=== PATIENT | female | born 1980 | race Caucasian/White ===

== ENCOUNTER 2016-05-11 20:58 | Emergency (ER) | payer BC ==
[~2016-05-11] VITALS: Ht 165.1 cm; Wt 77.1 kg
[2016-05-11] MEDS ORDERED: IBUP800T23 PO (21:16)
[2016-05-11] MEDS ORDERED: MULT1TAB8 PO (21:16)
[2016-05-11] MEDS ORDERED: diphenhydrAMINE INJ 50MG/ML VIAL (J1200) IV STA (22:46)
[2016-05-11] MEDS ORDERED: ACETAMINOPHEN 325 MG TAB PO ONE (23:00)
[2016-05-11] MEDS ORDERED: NS 1,000 ML IV ONE (23:00)
[2016-05-11] MEDS ORDERED: METOCLOPRAMIDE INJ 10MG/2ML VIAL (J2765) IV ONE (23:00)
[2016-05-11 23:26] LABS: BASO % 0.9 % (0.0-1.0); EOS # 0.2 K/mm3 (0.0-0.50); EOS % 3.6 % (0.0-3.0); LARGE UNSTAINED CELL # 0.2 K/mm3 (0.0-0.4); LARGE UNSTAINED CELL % 3.4 % (0.0-4.0); LYMPH # 1.5 K/mm3 (1.5-4.5); MEAN CORPUSCULAR HEMOGLOBIN 28.9 pg (27.0-33.0); MEAN CORPUSCULAR HGB CONC 33.1 g/dl (32.0-36.5); MEAN CORPUSCULAR VOLUME 87.5 fl (80.0-96.0); MONO # 0.4 K/mm3 (0.0-0.8); MONO % 8.2 % (0.0-5.0); NEUTROPHILS # 2.4 K/mm3 (1.8-7.7); NEUTROPHILS % 53.9 % (36.0-66.0); PLATELET COUNT, AUTOMATED 190 k/mm3 (150-450); RED CELL DISTRIBUTION WIDTH 12.3 % (11.5-14.5); WHITE BLOOD COUNT 4.5 K/mm3 (4.0-10.0)
[2016-05-11 23:32] LABS: CALCIUM OXALATE CRYSTALS LARGE
[2016-05-11 23:55] LABS: ANION GAP 7 MEQ/L (8-16); BLOOD UREA NITROGEN 12 MG/DL (7-18); CALCIUM LEVEL 8.7 MG/DL (8.5-10.1); CARBON DIOXIDE LEVEL 27 MEQ/L (21-32); CHLORIDE LEVEL 108 MEQ/L (98-107); CREATININE FOR GFR 0.79 MG/DL (0.55-1.02); GLOMERULAR FILTRATION RATE > 60.0 (>60); GLUCOSE, FASTING 97 MG/DL (70-105); POTASSIUM SERUM 4.3 MEQ/L (3.5-5.1); SODIUM LEVEL 142 MEQ/L (136-145)
[2016-05-12 00:31] VITALS: BP 116/63
== END 2016-05-12 00:37 | disposition home or self-care (01) ==
LOC: M ED 22:05
DX: B34.9 Viral infection, unspecified (principal); I49.9 Cardiac arrhythmia, unspecified; K44.9 Diaphragmatic hernia without obstruction or gangrene; N80.9 Endometriosis, unspecified; Z79.899 Other long term (current) drug therapy
CPT/HCPCS: 80048; 81001; 81025; 85025; 87804; 96374; 96375; 99283; J1200; J2765

== ENCOUNTER → 2017-04-02 | Outpatient (CLI) | payer BC ==
[2017-04-02 19:03] LABS: CONTROL LINE HCG INT CTR LINE PRESENT; HCG, SERUM QUALITATIVE NEGATIVE (NEGATIVE)
== END ==
LOC: M WUC 14:54
DX: N91.2 Amenorrhea, unspecified (principal)
CPT/HCPCS: 84703

== ENCOUNTER 2017-04-10 12:02 | Emergency (ER) | payer BC ==
[2017-04-10] MEDS: ONDANSETRON 4MG/2ML VIAL (J2405) IV (13:29)
[2017-04-10] MEDS: NS 1,000 ML IV (13:29)
[2017-04-10] MEDS: MORPHINE 4 MG/ML 1ML SYRINGE IV (13:29)
[2017-04-10 13:33] LABS: BASO # 0.1 10^3/uL (0.0-0.2); BASO % 0.6 % (0.0-1.0); EOS # 0.4 10^3/uL (0.0-0.50); EOS % 3.3 % (0.0-3.0); HEMATOCRIT 44.1 % (36.0-47.0); HEMOGLOBIN 14.8 g/dl (12.0-16.0); IMMATURE GRANULOCYTE % 0.4 % (0-0); LYMPH # 1.9 10^3/uL (1.5-4.5); LYMPH % 17.5 % (24.0-44.0); MEAN CORPUSCULAR HEMOGLOBIN 29.8 pg (27.0-33.0); MEAN CORPUSCULAR HGB CONC 33.6 g/dl (32.0-36.5); MEAN CORPUSCULAR VOLUME 88.7 fl (80.0-96.0); MONO # 0.9 10^3/uL (0.0-0.8); MONO % 8.3 % (0.0-5.0); NEUTROPHILS # 7.5 10^3/uL (1.8-7.7); NEUTROPHILS % 69.9 % (36.0-66.0); PLATELET COUNT, AUTOMATED 307 10^3/uL (150-450); RED BLOOD COUNT 4.97 10^6/uL (4.00-5.40); RED CELL DISTRIBUTION WIDTH 12.1 % (11.5-14.5); WHITE BLOOD COUNT 10.7 10^3/uL (4.0-10.0)
[2017-04-10 13:45] LABS: CONTROL LINE HCG INT CTR LINE PRESENT; HCG, SERUM QUALITATIVE NEGATIVE (NEGATIVE); KETONE, URINE AUTO RFX NEGATIVE (NEGATIVE); LEUKOCYTE ESTERASE UR AUTO RFX NEGATIVE (NEGATIVE); MUCUS, URINE RFX SMALL (NEGATIVE); NITRITE, URINE AUTO RFX NEGATIVE (NEGATIVE); RBC, URINE AUTO RFX TNTC /HPF (0-3); SPECIFIC GRAVITY UR AUTO RFX 1.024 (1.002-1.035); SQUAM EPITHELIAL CELL UR AURFX 1 /HPF (0-6); WBC, URINE AUTO RFX 2 /HPF (0-3)
[2017-04-10 13:56] LABS: ALBUMIN 4.1 GM/DL (3.2-5.2); ALBUMIN/GLOBULIN RATIO 1.17 (1.00-1.93); ALKALINE PHOSPHATASE 92 U/L (45-117); ALT/SGPT 49 U/L (12-78); ANION GAP 6 MEQ/L (8-16); AST/SGOT 18 U/L (7-37); BILIRUBIN,DIRECT < 0.1 MG/DL (0.0-0.2); BILIRUBIN,TOTAL 0.4 MG/DL (0.2-1.0); BLOOD UREA NITROGEN 11 MG/DL (7-18); CALCIUM LEVEL 9.2 MG/DL (8.5-10.1); CARBON DIOXIDE LEVEL 26 MEQ/L (21-32); CHLORIDE LEVEL 108 MEQ/L (98-107); CREATININE FOR GFR 0.81 MG/DL (0.55-1.30); GLOMERULAR FILTRATION RATE > 60.0 (>60); GLUCOSE, FASTING 103 MG/DL (70-100); LIPASE 135 U/L (73-393); POTASSIUM SERUM 4.1 MEQ/L (3.5-5.1); SODIUM LEVEL 140 MEQ/L (136-145); TOTAL PROTEIN 7.6 GM/DL (6.4-8.2)
[2017-04-10] MEDS ORDERED: ISOVUE-370 76% 100ML VIAL (Q9967) As Ordered (14:52)
[2017-04-10] MEDS: SIMETHICONE 80 MG CHEW TAB PO (16:00)
== END 2017-04-10 16:07 | disposition home or self-care (01) ==
LOC: M ED 12:02
DX: R10.9 Unspecified abdominal pain (principal)
CPT/HCPCS: J2405

== ENCOUNTER → 2017-05-05 | Outpatient (REF) | payer BC ==
[2017-05-05 18:53] LABS: HEMATOCRIT 43.7 % (36.0-47.0); HEMOGLOBIN 14.4 g/dl (12.0-16.0); MEAN CORPUSCULAR HEMOGLOBIN 29.7 pg (27.0-33.0); MEAN CORPUSCULAR VOLUME 90.1 fl (80.0-96.0); PLATELET COUNT, AUTOMATED 302 10^3/uL (150-450); RED BLOOD COUNT 4.85 10^6/uL (4.00-5.40); RED CELL DISTRIBUTION WIDTH 12.1 % (11.5-14.5); WHITE BLOOD COUNT 9.3 10^3/uL (4.0-10.0)
[2017-05-05 19:16] LABS: FOLLICLE STIMULATING HORMONE 2.4 mIU/mL; LUTEINIZING HORMONE 5.4 mIU/mL
[2017-05-05 19:18] LABS: FREE T4 1.03 NG/DL (0.76-1.46)
== END ==
LOC: M LAB REF 17:50
DX: N92.0 Excessive and frequent menstruation with regular cycle (principal)
CPT/HCPCS: 83001

== ENCOUNTER → 2019-03-11 | Outpatient (CLI) | payer BC ==
[~2019-03-11] MED LIST: IBUP1TAB7 PO; MULT1TAB8 PO; SIME180C PO
[2019-03-11 12:37] LABS: BASO # 0.1 10^3/uL (0.0-0.2); BASO % 0.8 % (0.0-1.0); EOS # 0.4 10^3/uL (0.0-0.5); EOS % 4.6 % (0.0-3.0); HEMATOCRIT 47.4 % (36.0-47.0); LYMPH # 3.1 10^3/uL (1.5-5.0); LYMPH % 34.7 % (24.0-44.0); MEAN CORPUSCULAR HEMOGLOBIN 29.1 pg (27.0-33.0); MEAN CORPUSCULAR HGB CONC 31.6 g/dl (32.0-36.5); MEAN CORPUSCULAR VOLUME 91.9 fl (80.0-96.0); MONO # 0.7 10^3/uL (0.0-0.8); MONO % 7.7 % (0.0-5.0); NEUTROPHILS # 4.6 10^3/uL (1.5-8.5); NEUTROPHILS % 51.9 % (36.0-66.0); PLATELET COUNT, AUTOMATED 296 10^3/uL (150-450); RED BLOOD COUNT 5.16 10^6/uL (4.00-5.40); WHITE BLOOD COUNT 8.9 10^3/uL (4.0-10.0)
[2019-03-11 13:13] LABS: BLOOD UREA NITROGEN 11 MG/DL (7-18); CALCIUM LEVEL 9.2 MG/DL (8.5-10.1); CARBON DIOXIDE LEVEL 27 MEQ/L (21-32); CHLORIDE LEVEL 105 MEQ/L (98-107); CREATININE FOR GFR 0.76 MG/DL (0.55-1.30); GLOMERULAR FILTRATION RATE > 60.0 (>60); GLUCOSE, FASTING 86 MG/DL (70-100); POTASSIUM SERUM 4.4 MEQ/L (3.5-5.1); SODIUM LEVEL 137 MEQ/L (136-145)
[2019-03-11 13:14] LABS: ALBUMIN 3.6 GM/DL (3.2-5.2); ALT/SGPT 38 U/L (12-78); BILIRUBIN,TOTAL 0.6 MG/DL (0.2-1.0); LIPASE 103 U/L (73-393); TOTAL PROTEIN 6.7 GM/DL (6.4-8.2)
--- NOTE | 2019-03-11 13:39 | REP ---
PELVIC SONOGRAPHY: HISTORY: Right lower quadrant abdominal pain and tenderness. FINDINGS: Transabdominal and transvaginal scanning are performed. Uterine dimensions are 9.5 x 4.3 x 4.7 cm. Endometrial echo 1.1 cm and centrally placed. No focal uterine mass is seen. Visualized bladder humphries are smooth. No free fluid is seen. Right ovary has a normal appearance measuring 2.6 x 2.3 x 2.6 cm. Left ovary dimensions are 4.4 x 4.0 x 3.6 cm. It contains a simple cyst measuring 3.6 x 2.6 x 2.9 cm. Doppler flow is confirmed in both ovaries. The resistive indices by Doppler are 0.72 on the right and 0.43 on the left. IMPRESSION: There is a 3.6 cm simple cyst in the left ovary. Otherwise normal pelvic sonography. Electronically Signed by Ricky Leger MD 03/11/2019 02:06 P
== END ==
LOC: M RAD 11:29
PROVIDERS: ATTEND Physician Assistant
DX: N83.202 Unspecified ovarian cyst, left side (principal)

== ENCOUNTER → 2019-03-11 | Outpatient (REF) | payer BC | LOC: M LAB REF 16:54 | PROVIDERS: ATTEND Physician Assistant | DX: R10.813 Right lower quadrant abdominal tenderness (principal) ==

== ENCOUNTER → 2019-09-12 | Outpatient (CLI) | payer BC ==
[~2019-09-12] MED LIST changes: +PERC5TAB12 PO
== END ==
LOC: M LABSMTC 09:03
PROVIDERS: ATTEND Anesthesiology
DX: Z03.818 Encounter for observation for suspected exposure to other biological agents ruled out (principal); Z11.59 Encounter for screening for other viral diseases
CPT/HCPCS: C9803; U0003

== ENCOUNTER 2019-09-15 06:08 | Day surgery (SDC) | payer BC ==
[~2019-09-15] VITALS: Ht 165.1 cm; Wt 83.5 kg
[2019-09-15] VITALS (7 sets, daily range): BP systolic 119–136; BP diastolic 60–81
[~2019-09-15 06:08] MED LIST changes: +LR 1,000 ML IV ONE; -PERC5TAB12 PO
[2019-09-15] MEDS ORDERED: ceFAZolin SOD 2 GM in IV 1 EA IV ONE (06:45)
[2019-09-15] MEDS ORDERED: ACETAMINOPHEN *IV* 1,000 MG IV ONE ×2 (06:45)
[2019-09-15 07:09] LABS: HEMATOCRIT 47.4 % (36.0-47.0); HEMOGLOBIN 15.6 g/dl (12.0-15.5); MEAN CORPUSCULAR HEMOGLOBIN 30.1 pg (27.0-33.0); MEAN CORPUSCULAR HGB CONC 32.9 g/dl (32.0-36.5); MEAN CORPUSCULAR VOLUME 91.5 fl (80.0-96.0); PLATELET COUNT, AUTOMATED 297 10^3/uL (150-450); RED BLOOD COUNT 5.18 10^6/uL (4.00-5.40); WHITE BLOOD COUNT 11.2 10^3/uL (4.0-10.0)
[2019-09-15] MEDS ORDERED: MIDAZOLAM INJ 2MG/2ML VIAL (J2250 PER 1MG) As Ordered ONE (07:15)
[2019-09-15] MEDS ORDERED: propofoL 200 MG/20 ML VIAL As Ordered ONE (07:15)
[2019-09-15] MEDS ORDERED: ROCURONIUM BROMIDE 50 MG/5 ML VIAL As Ordered ONE (07:15)
[2019-09-15] MEDS ORDERED: BUPIVACAINE/EPIN 0.25% 30 ML VIAL As Ordered ONE (07:15)
[2019-09-15] MEDS ORDERED: FLUORESCEIN 10% (100MG/ML) 5 ML VIAL As Ordered ONE (07:15)
[2019-09-15] MEDS ORDERED: fentaNYL 100 MCG/2 ML INJECTION (J3010) As Ordered ONE ×2 (07:15→09:27)
[2019-09-15] MEDS ORDERED: HYDROmorphone HCL 2 MG/ML 1ML VIAL (J1170) As Ordered ONE (07:15)
[2019-09-15] MEDS ORDERED: LIDOCAINE 2% 100MG/5ML SDV (FOR ANES.) As Ordered ONE (07:15)
[2019-09-15] MEDS ORDERED: ONDANSETRON 4MG/2ML VIAL As Ordered ONE (07:16)
[2019-09-15] MEDS ORDERED: dexameTHASONE 4 MG/ML 1ML VIAL (J1100 PER 1MG) As Ordered ONE (07:16)
[2019-09-15 07:36] LABS: BLOOD UREA NITROGEN 9 MG/DL (7-18); CARBON DIOXIDE LEVEL 27 MEQ/L (21-32); CHLORIDE LEVEL 108 MEQ/L (98-107); CREATININE FOR GFR 0.88 MG/DL (0.55-1.30); GLOMERULAR FILTRATION RATE > 60.0 (>60); GLUCOSE, FASTING 101 MG/DL (70-100); POTASSIUM SERUM 4.2 MEQ/L (3.5-5.1); SODIUM LEVEL 137 MEQ/L (136-145)
[2019-09-15] MEDS ORDERED: ACETAMINOPHEN 1000MG 100ML IV BTL (OFIRMEV) (J0131 PER 10MG) As Ordered ONE (08:02)
[2019-09-15] MEDS ORDERED: SUGAMMADEX SODIUM 500 MG/5 ML VIAL (BRIDION) As Ordered ONE (08:26)
[2019-09-15] MEDS ORDERED: KETOROLAC 60MG 2ML VIAL As Ordered ONE (08:26)
[2019-09-15] MEDS ORDERED: PERC5TAB12 PO (09:17)
[2019-09-15] MEDS ORDERED: ONDANSETRON 4MG/2ML VIAL IV PRN (09:30)
[2019-09-15] MEDS ORDERED: LR 1,000 ML IV SCH (09:30)
[2019-09-15] MEDS ORDERED: METOCLOPRAMIDE INJ 10MG/2ML VIAL (J2765 PER 1) IV PRN (09:30)
[2019-09-15] MEDS ORDERED: oxyCODONE 5MG TAB PO PRN (09:30)
[2019-09-15] MEDS ORDERED: fentaNYL 100 MCG/2 ML INJECTION (J3010) IV PRN (09:30)
[2019-09-15] MEDS: MEPERIDINE INJ 25 MG/ML VIAL (J2175) IV PRN ×2 (09:32→09:39)
[2019-09-15] MEDS ORDERED: PERCOCET 5MG/325MG TAB PO PRN (09:45)
[2019-09-15] MEDS ORDERED: SIMETHICONE 80 MG CHEW TAB PO SCH ×2 (10:00→12:00)
[2019-09-15] MEDS ORDERED: IBUPROFEN 800 MG TAB PO SCH (15:00)
--- NOTE | 2019-09-21 00:27 | RO ---
DATE OF PROCEDURE: 09/15/2019 Carmelina is a 39-year-old female with an extensive history of excessive menstruation, pelvic pain and dyspareunia, as well as recurrent right ovarian cyst for which she is adamant about having her right ovary removed. After extensive counseling in the office, a decision was made to proceed with a robotic-assisted total hysterectomy and removal of her right ovary as well as bilateral fallopian tube. PREOPERATIVE DIAGNOSES: 1. Excessive menstruation. 2. Pelvic pain. 3. Dyspareunia. POSTOPERATIVE DIAGNOSES: 1. Excessive menstruation. 2. Pelvic pain. 3. Dyspareunia. 4. Left ovarian cyst. PROCEDURE: 1. Robotic-assisted total hysterectomy. 2. Removal of both tubes. 3. Right oophorectomy. 4. Left ovarian cystectomy. 5. Cystoscopy. SURGEON: Krystian Peres DO SHOE REPAIRER: DONNA Bedoya ANESTHESIA COMPLICATIONS: None. ESTIMATED BLOOD LOSS: Less than 50 mL. FINDINGS: An enlarged uterus, a left ovarian what appeared to be a hemorrhagic cyst, and a normal appearing uterus . The bilateral fallopian tube with evidence of prior tubal ligation. On cystoscopy, bilateral ureteral jets were noted. No evidence of any bladder injury noted. DESCRIPTION OF PROCEDURE: After obtaining informed consent, the patient was taken to the operating room where general anesthetic was found to be adequate. She was then draped and prepped in the usual sterile fashion in the dorsal lithotomy position. At this point, a Mcgarry catheter was placed in the bladder for drainage. We then placed a HUMI II uterine manipulator. Attention turned to the abdomen where an 8 mm infraumbilical incision was made using the Veress needle. The abdomen was insufflated with CO2 gas to approximately 3.5 liters. We then placed an 8 mm trocar under direct visualization with the robotic camera. Then, two left lateral 8 mm ports were placed for robotic arm two, and the assist port on the right side, another 8 mm trocar was placed for robotic arm one. The patient was then placed in steep Trendelenburg at approximately a 30-degree angle. The robot was brought to the patient's right side and docked in the usual fashion after docking the camera port. The robot was then targeted, and the remaining arms were then docked. At this point, a vessel sealer was placed on robotic arm one and a bipolar grasper on robotic arm two. I then unscrubbed and went to the surgeon console and began the surgery. The entire abdomen and pelvis was inspected. Evidence of prior tubal ligation was noted. At this point, filmy adhesion was noted on the left side, which was removed using the vessel sealer. We then note a slightly oozing hemorrhagic cyst on the left side. Using the vessel sealer, the cyst wall was cauterized and removed. This was sent to pathology. Good hemostasis noted at that ovary. We then proceeded to remove the fallopian tube all way down to the utero-ovarian ligament, the round ligament was also cauterized and cut. The anterior leaflet of the broad ligament was dissected to create a bladder flap. At this point, the uterine arteries were skeletonized and cauterized using the vessel sealer. I then turned my attention to the right side where the infundibulopelvic ligament was identified. This was cauterized and cut removing the ovary, as well as the fallopian tube all the way down to the uterine artery. The uterine artery was then coagulated with the vessel sealer and cut. The anterior leaflet of the broad ligament on that side was dissected to complete the bladder flap. The bladder was pushed completely out of the operative field. At this point, after securing both uterine arteries, the vessel sealer was removed, and Endo shear was inserted and anterior and posterior colpotomy was performed. The uterus, as well as bilateral fallopian tube, and the right ovary was removed through the vagina. 1 mL of fluorescein was given by the anesthesiologist to assist in cystoscopy. I then used a #2-0 V-Loc suture, and the vaginal cuff was then closed in a running fashion. The peritoneum over the vaginal cuff was also closed. Pelvis copiously irrigated with normal saline and suctioned out. I then re-scrubbed and went to the patient's side, retrograde filled the bladder with 230 mL of normal saline. Mcgarry catheter was removed. A cystoscope was inserted. Cystoscopy was performed, bilateral ureteral jets noted with yellow dye coming out of both ureters. No evidence of bladder injury noted. At this point, the cystoscope was removed, Mcgarry catheter was placed back in the bladder for drainage. I then went to the patient's abdomen. All the trocars were removed, and the robotic ports were then closed using #3-0 Vicryl in a subcuticular fashion. 0.25% Marcaine was placed for postoperative pain. Dermabond placed. The patient tolerated the procedure well. She was then transferred to recovery room in stable condition.
== END 2019-09-15 16:25 | disposition home or self-care (01) ==
LOC: M SDC 06:08 → M PED 10:10 → M SDC 16:25
PROVIDERS: ATTEND Obstetrics & Gynecology
DX: R10.2 Pelvic and perineal pain (principal); D25.9 Leiomyoma of uterus, unspecified; N88.8 Other specified noninflammatory disorders of cervix uteri; N83.12 Corpus luteum cyst of left ovary; D27.0 Benign neoplasm of right ovary; N93.9 Abnormal uterine and vaginal bleeding, unspecified; N94.11 Superficial (introital) dyspareunia; K58.8 Other irritable bowel syndrome; Z79.899 Other long term (current) drug therapy; Z88.0 Allergy status to penicillin
CPT/HCPCS: 36415; 58571; 58662; 80048; 85027; 86850; 86900; 86901; 88305; 88307; J0131; J0690; J1100; J1170; J1885; J2175; J2250; J2405; J3010

== ENCOUNTER 2020-10-28 17:58 | Emergency (ER) | payer BC ==
[~2020-10-28] VITALS: Ht 165.1 cm; Wt 85.6 kg
[~2020-10-28 17:58] MED LIST changes: -LR 1,000 ML IV ONE; +PERC5TAB12 PO; -SIME180C PO; +SIME180C25 PO
[2020-10-28 19:45] LABS: BASO # 0.1 10^3/uL (0.0-0.2); BASO % 0.8 % (0.0-1.0); EOS # 0.5 10^3/uL (0.0-0.5); HEMATOCRIT 45.8 % (36.0-47.0); HEMOGLOBIN 15.4 g/dl (12.0-15.5); LYMPH # 3.5 10^3/uL (1.5-5.0); LYMPH % 31.8 % (24.0-44.0); MEAN CORPUSCULAR HEMOGLOBIN 30.1 pg (27.0-33.0); MEAN CORPUSCULAR HGB CONC 33.6 g/dl (32.0-36.5); MEAN CORPUSCULAR VOLUME 89.6 fl (80.0-96.0); MONO # 0.8 10^3/uL (0.0-0.8); MONO % 7.3 % (2.0-8.0); NEUTROPHILS # 6.2 10^3/uL (1.5-8.5); NEUTROPHILS % 55.7 % (36.0-66.0); PLATELET COUNT, AUTOMATED 336 10^3/uL (150-450); RED BLOOD COUNT 5.11 10^6/uL (4.00-5.40); WHITE BLOOD COUNT 11.1 10^3/uL (4.0-10.0)
[2020-10-28 20:00] LABS: ALBUMIN 3.7 GM/DL (3.2-5.2); ALT/SGPT 69 U/L (12-78); BILIRUBIN,DIRECT < 0.1 MG/DL (0.0-0.2); BILIRUBIN,TOTAL 0.2 MG/DL (0.2-1.0); LIPASE 132 U/L (73-393); TOTAL PROTEIN 6.7 GM/DL (6.4-8.2)
[2020-10-28] MEDS ORDERED: ONDANSETRON 4MG/2ML VIAL IV ONE (20:15)
[2020-10-28] MEDS ORDERED: KETOROLAC 30 MG/ML 1ML VIAL IV ONE (20:15)
[2020-10-28] MEDS ORDERED: ISOVUE-370 76% 100ML VIAL As Ordered ONE (20:20)
--- NOTE | 2020-10-28 21:01 | REPVR ---
PROCEDURE INFORMATION: Exam: CT Abdomen And Pelvis With Contrast Exam date and time: 10/28/2020 8:23 PM Age: 40 years old Clinical indication: Other: Abdominal pain/rlq TECHNIQUE: Imaging protocol: Computed tomography of the abdomen and pelvis with contrast. Axial, coronal and sagittal reformatted images were created and reviewed. Radiation optimization: All CT scans at this facility use at least one of these dose optimization techniques: automated exposure control; mA and/or kV adjustment per patient size (includes targeted exams where dose is matched to clinical indication); or iterative reconstruction. Contrast material: ISOVUE 370; Contrast volume: 100 ml; Contrast route: INTRAVENOUS (IV); COMPARISON: CT ABD/PEL W/IV CONTRAST ONLY 04/10/2017 2:50 PM FINDINGS: Lungs: Minimal dependent atelectatic change at the lung bases. Liver: Mild hepatomegaly. Diffuse hepatic steatosis. Gallbladder and bile ducts: Status post cholecystectomy. No biliary ductal dilatation. Pancreas: Unremarkable. Spleen: Unremarkable. Adrenal glands: Normal. No mass. Kidneys and ureters: Nonobstructing right renal calculus. No hydronephrosis. Stomach and bowel: No bowel wall thickening. No obstruction. No pneumatosis. Appendix: Normal. Intraperitoneal space: No free fluid. No organized fluid collection. No free air. Vasculature: Unremarkable. No aneurysm. Lymph nodes: No pathologically enlarged lymph nodes. Urinary bladder: Unremarkable as visualized. Reproductive: Status post hysterectomy. Bones/joints: No acute osseous abnormality. Soft tissues: Small, fat containing umbilical hernia. IMPRESSION: 1. No CT evidence of acute intra-abdominal or pelvic pathology. 2. Additional findings, as above. Electronically signed by: Ravinder Buckner On 10/28/2020 21:01:10 PM
[2020-10-28] MEDS ORDERED: DICY10CA13 PO (21:49)
[2020-10-28] MEDS ORDERED: DICYCLOMINE 10 MG CAP PO ONE (21:50)
[2020-10-28 22:03] VITALS: BP 162/82
== END 2020-10-28 22:05 | disposition home or self-care (01) ==
LOC: M ED 17:58
DX: G89.29 Other chronic pain (principal); R10.9 Unspecified abdominal pain; K44.9 Diaphragmatic hernia without obstruction or gangrene; N80.9 Endometriosis, unspecified; Z88.0 Allergy status to penicillin; F17.210 Nicotine dependence, cigarettes, uncomplicated
CPT/HCPCS: 74177; 80047; 80076; 81001; 83690; 85025; 96374; 96375; 99284; J1885; J2405; Q9967

== ENCOUNTER 2021-06-07 06:15 | Emergency (ER) | payer BC ==
[~2021-06-07] VITALS: Ht 165.1 cm; Wt 83.6 kg
[~2021-06-07 06:15] MED LIST changes: +DICY10CA13 PO
[2021-06-07] MEDS ORDERED: ONDANSETRON 4MG/2ML VIAL IV ONE (07:30)
[2021-06-07] MEDS ORDERED: KETOROLAC 30 MG/ML 1ML VIAL IV ONE (07:30)
[2021-06-07] MEDS ORDERED: NS 1,000 ML IV ONE (07:30)
[2021-06-07 08:08] LABS: BASO # 0.1 10^3/uL (0.0-0.2); BASO % 0.7 % (0.0-1.0); EOS # 0.5 10^3/uL (0.0-0.5); EOS % 4.4 % (0.0-3.0); HEMATOCRIT 45.2 % (36.0-47.0); LYMPH # 3.5 10^3/uL (1.5-5.0); LYMPH % 33.1 % (24.0-44.0); MEAN CORPUSCULAR HEMOGLOBIN 29.9 pg (27.0-33.0); MEAN CORPUSCULAR HGB CONC 33.2 g/dl (32.0-36.5); MEAN CORPUSCULAR VOLUME 90.2 fl (80.0-96.0); MONO # 0.9 10^3/uL (0.0-0.8); NEUTROPHILS # 5.7 10^3/uL (1.5-8.5); NEUTROPHILS % 53.4 % (36.0-66.0); PLATELET COUNT, AUTOMATED 275 10^3/uL (150-450); RED BLOOD COUNT 5.01 10^6/uL (4.00-5.40); WHITE BLOOD COUNT 10.7 10^3/uL (4.0-10.0)
[2021-06-07 08:46] LABS: ALBUMIN 3.5 GM/DL (3.2-5.2); ALT/SGPT 52 U/L (12-78); BILIRUBIN,DIRECT 0.1 MG/DL (0.0-0.2); BILIRUBIN,TOTAL 0.2 MG/DL (0.2-1.0); BLOOD UREA NITROGEN 13 MG/DL (7-18); CALCIUM LEVEL 9.3 MG/DL (8.5-10.1); CARBON DIOXIDE LEVEL 25 MEQ/L (21-32); CHLORIDE LEVEL 112 MEQ/L (98-107); CREATININE FOR GFR 0.81 MG/DL (0.55-1.30); GLOMERULAR FILTRATION RATE > 60.0 (>58); GLUCOSE, FASTING 95 MG/DL (70-100); LIPASE 111 U/L (73-393); POTASSIUM SERUM 4.6 MEQ/L (3.5-5.1); SODIUM LEVEL 141 MEQ/L (136-145); TOTAL PROTEIN 6.4 GM/DL (6.4-8.2)
[2021-06-07] MEDS ORDERED: KETO10TAB PO (09:21)
[2021-06-07] MEDS ORDERED: CIPR-249 PO (09:21)
[2021-06-07] MEDS ORDERED: FLOM0.4C39 PO (09:21)
[2021-06-07 09:29] VITALS: BP 141/86
[2021-06-07] MEDS ORDERED: NORCO, ANEXSIA 5/325MG TABLET (HYDROcodone/ACETAMINOPHEN) PO ONE (09:40)
[2021-06-07] MEDS ORDERED: ONDANSETRON 4MG ORAL DISINTEGRATING TAB PO ONE (09:45)
== END 2021-06-07 10:11 | disposition home or self-care (01) ==
LOC: M ED 06:15
DX: N20.1 Calculus of ureter (principal); Z88.0 Allergy status to penicillin; F17.210 Nicotine dependence, cigarettes, uncomplicated; F12.20 Cannabis dependence, uncomplicated
CPT/HCPCS: 74176; 80048; 80076; 81001; 83690; 85025; 87086; 96361; 96374; 96375; 99284; J1885; J2405

== ENCOUNTER 2021-06-18 23:09 | Emergency (ER) | payer BC ==
[~2021-06-18] VITALS: Ht 165.1 cm; Wt 86.0 kg
[~2021-06-18 23:09] MED LIST changes: +CIPR-249 PO; +FLOM0.4C39 PO; +KETO10TAB PO
[2021-06-18] MEDS ORDERED: OXYC1TAB23 PO (23:19)
[2021-06-18] MEDS ORDERED: DITR5TAB PO (23:19)
[2021-06-18] MEDS ORDERED: MACR100C43 PO (23:19)
[2021-06-19] MEDS ORDERED: PERCOCET 5MG/325MG TAB PO ONE (01:00)
[2021-06-19 01:25] LABS: BASO # 0.1 10^3/uL (0.0-0.2); BASO % 0.8 % (0.0-1.0); EOS # 0.6 10^3/uL (0.0-0.5); EOS % 4.8 % (0.0-3.0); HEMATOCRIT 44.8 % (36.0-47.0); HEMOGLOBIN 14.8 g/dl (12.0-15.5); LYMPH # 3.9 10^3/uL (1.5-5.0); LYMPH % 33.4 % (24.0-44.0); MEAN CORPUSCULAR HEMOGLOBIN 30.5 pg (27.0-33.0); MEAN CORPUSCULAR VOLUME 92.4 fl (80.0-96.0); MONO # 0.9 10^3/uL (0.0-0.8); MONO % 7.7 % (2.0-8.0); NEUTROPHILS # 6.2 10^3/uL (1.5-8.5); PLATELET COUNT, AUTOMATED 332 10^3/uL (150-450); RED BLOOD COUNT 4.85 10^6/uL (4.00-5.40); WHITE BLOOD COUNT 11.8 10^3/uL (4.0-10.0)
[2021-06-19 01:55] LABS: HCG, SERUM QUALITATIVE NEGATIVE (NEGATIVE)
[2021-06-19 01:57] LABS: ALBUMIN 3.5 GM/DL (3.2-5.2); ALT/SGPT 77 U/L (12-78); BILIRUBIN,DIRECT < 0.1 MG/DL (0.0-0.2); BILIRUBIN,TOTAL 0.3 MG/DL (0.2-1.0); LIPASE 92 U/L (73-393); TOTAL PROTEIN 6.4 GM/DL (6.4-8.2)
[2021-06-19] MEDS ORDERED: OXYCODONE/APAP 5MG/325MG(BULK FOR ED) 1 TABLET PO ONE (04:10)
[2021-06-19 05:30] VITALS: BP 132/84
== END 2021-06-19 05:30 | disposition home or self-care (01) ==
LOC: M ED 23:09
DX: N20.0 Calculus of kidney (principal); N23 Unspecified renal colic; N80.9 Endometriosis, unspecified; K44.9 Diaphragmatic hernia without obstruction or gangrene; Z96.0 Presence of urogenital implants; Z88.0 Allergy status to penicillin; F17.210 Nicotine dependence, cigarettes, uncomplicated

== ENCOUNTER → 2021-06-27 | Outpatient (CLI) | payer BC ==
[~2021-06-27] MED LIST changes: +DITR5TAB PO; +MACR100C43 PO; +OXYC1TAB23 PO
== END ==
LOC: M WUC 11:09
PROVIDERS: ATTEND Physician Assistant
DX: N20.1 Calculus of ureter (principal)

== ENCOUNTER → 2021-06-27 | Outpatient (CLI) | payer BC | LOC: M LABSMTC 10:40 | PROVIDERS: ATTEND Anesthesiology | DX: Z01.818 Encounter for other preprocedural examination (principal); Z11.52 Encounter for screening for COVID-19 ==

== ENCOUNTER 2021-07-02 10:16 | Day surgery (SDC) | payer BC ==
[~2021-07-02] VITALS: Ht 165.1 cm; Wt 85.2 kg
[~2021-07-02 10:16] MED LIST changes: +CIPROFLOXACIN 400 MG in IV 1 EA IV ONE; +LIDOCAINE 1% MDV 20ML VIAL SQ PRN; +LR 1,000 ML IV ONE; +ceFAZolin SOD 2 GM in IV 1 EA IV ONE
[2021-07-02] MEDS ORDERED: dexameTHASONE 4 MG/ML 1ML VIAL (J1100 PER 1MG) As Ordered ONE (11:51)
[2021-07-02] MEDS ORDERED: ONDANSETRON 4MG/2ML VIAL As Ordered ONE (11:51)
[2021-07-02] MEDS ORDERED: LIDOCAINE 2% 100MG/5ML SDV (FOR ANES.) As Ordered ONE (11:51)
[2021-07-02] MEDS ORDERED: propofoL 200 MG/20 ML VIAL As Ordered ONE (11:51)
[2021-07-02] MEDS ORDERED: MIDAZOLAM INJ 2MG/2ML VIAL (J2250 PER 1MG) As Ordered ONE (11:52)
[2021-07-02] MEDS ORDERED: fentaNYL 100 MCG/2 ML INJECTION As Ordered ONE (11:52)
[2021-07-02] MEDS ORDERED: ISOVUE-300 61% 50ML VIAL As Ordered ONE (12:45)
[2021-07-02] MEDS ORDERED: ACETAMINOPHEN 1000MG 100ML IV BTL (OFIRMEV) (J0131 PER 10MG) As Ordered ONE (12:48)
[2021-07-02] MEDS ORDERED: ePHEDrine SULFATE 25 MG/5 ML(5MG/ML) SYRINGE As Ordered ONE (12:48)
[2021-07-02] MEDS ORDERED: LR 1,000 ML IV SCH (13:20)
[2021-07-02] MEDS ORDERED: ONDANSETRON 4MG/2ML VIAL IV PRN (13:20)
[2021-07-02] MEDS ORDERED: PERCOCET 5MG/325MG TAB PO PRN (13:20)
[2021-07-02] MEDS ORDERED: oxyBUTYnin 5 MG TAB PO PRN (13:20)
[2021-07-02] MEDS ORDERED: fentaNYL 100 MCG/2 ML INJECTION IV PRN (13:20)
[2021-07-02] MEDS ORDERED: oxyCODONE 5MG TAB PO PRN (13:20)
[2021-07-02] MEDS ORDERED: OXYB-54 PO (13:23)
[2021-07-02 14:15] VITALS: BP 139/83
[2021-07-06 19:06] LABS: CA Oxalate Dihy 90 % (.); Ca Ox Monohydrate 10 % (.); Size 7x6 mm (.)
== END 2021-07-02 14:30 | disposition home or self-care (01) ==
LOC: M SDC 10:16
PROVIDERS: ATTEND Urology
DX: N13.1 Hydronephrosis with ureteral stricture, not elsewhere classified (principal); R10.9 Unspecified abdominal pain; R14.1 Gas pain; Z79.899 Other long term (current) drug therapy; Z79.2 Long term (current) use of antibiotics; Z88.0 Allergy status to penicillin; F17.210 Nicotine dependence, cigarettes, uncomplicated
CPT/HCPCS: 52356; 74420; 82365; C1769; C2617; J0131; J0744; J1100; J2250; J2405; J3010; Q9967

== ENCOUNTER → 2021-11-26 | Outpatient (REF) | payer BC ==
[~2021-11-26] MED LIST changes: -CIPROFLOXACIN 400 MG in IV 1 EA IV ONE; -LIDOCAINE 1% MDV 20ML VIAL SQ PRN; -LR 1,000 ML IV ONE; +OXYB-54 PO; -ceFAZolin SOD 2 GM in IV 1 EA IV ONE
== END ==
LOC: M WUC 12:18
PROVIDERS: ATTEND Physician Assistant
DX: R30.0 Dysuria (principal)

== ENCOUNTER → 2022-01-22 | Outpatient (CLI) | payer BC | LOC: M PLALAB 13:06 | PROVIDERS: ATTEND Physician Assistant | DX: Z87.442 Personal history of urinary calculi (principal) ==

== ENCOUNTER 2022-05-19 21:29 | Emergency (ER) | payer BC ==
[~2022-05-19] VITALS: Ht 165.1 cm; Wt 94.9 kg
[2022-05-19] MEDS ORDERED: ESTR1TAB PO (21:37)
[2022-05-19] MEDS ORDERED: MAGN200T PO (21:37)
[2022-05-19] MEDS ORDERED: diphenhydrAMINE 50MG/ML VIAL IV ONE (22:55)
[2022-05-19] MEDS ORDERED: METOCLOPRAMIDE INJ 10MG/2ML VIAL IV ONE (22:55)
[2022-05-19] MEDS ORDERED: NS 1,000 ML IV ONE (22:55)
[2022-05-19] MEDS ORDERED: KETOROLAC 30 MG/ML 1ML VIAL IV ONE (22:55)
[2022-05-19 23:19] LABS: VENOUS HCO3 23.9 MEQ/L (23.0-27.0); VENOUS O2 SATURATION 85.2 % (60.0-80.0); VENOUS PARTIAL PRESSURE O2 48.2 mmHg (30.0-50.0); VENOUS PH 7.343 UNITS (7.330-7.430); VENOUS STANDARD HCO3 22.5 MEQ/L; VENOUS TOTAL CO2 25.3 MEQ/L (24.0-28.0)
[2022-05-19 23:28] LABS: BASO # 0.1 10^3/uL (0.0-0.2); BASO % 0.7 % (0.0-1.0); EOS # 0.4 10^3/uL (0.0-0.5); EOS % 4.1 % (0.0-3.0); LYMPH # 2.8 10^3/uL (1.5-5.0); LYMPH % 27.2 % (24.0-44.0); MEAN CORPUSCULAR HGB CONC 33.3 g/dl (32.0-36.5); MEAN CORPUSCULAR VOLUME 90.1 fl (80.0-96.0); MONO # 0.7 10^3/uL (0.0-0.8); MONO % 6.9 % (2.0-8.0); NEUTROPHILS # 6.4 10^3/uL (1.5-8.5); NEUTROPHILS % 60.7 % (36.0-66.0); PLATELET COUNT, AUTOMATED 301 10^3/uL (150-450); RED BLOOD COUNT 4.66 10^6/uL (4.00-5.40); WHITE BLOOD COUNT 10.5 10^3/uL (4.0-10.0)
[2022-05-19 23:30] VITALS: BP 157/83
[2022-05-19 23:42] LABS: LIPASE 35 U/L (12-53)
[2022-05-19 23:44] LABS: ALBUMIN 3.6 G/DL (3.2-5.2); ALKALINE PHOSPHATASE 85 U/L (46-116); ALT/SGPT 52 U/L (7.0-40); AST/SGOT 24 U/L (<34); BILIRUBIN,DIRECT < 0.1 MG/DL (<0.4); BILIRUBIN,TOTAL 0.2 MG/DL (0.3-1.2); BLOOD UREA NITROGEN 15 MG/DL (9-23); CALCIUM LEVEL 9.5 MG/DL (8.5-10.1); CARBON DIOXIDE LEVEL 25 MMOL/L (20-31); CHLORIDE LEVEL 107 MMOL/L (98-107); CREATININE FOR GFR 0.73 MG/DL (0.55-1.30); GLOMERULAR FILTRATION RATE > 60.0 (>58); GLUCOSE, FASTING 114 MG/DL (60-100); POTASSIUM SERUM 4.1 MMOL/L (3.5-5.1); SODIUM LEVEL 140 MMOL/L (136-145); TOTAL PROTEIN 6.3 G/DL (5.7-8.2)
[2022-05-20] MEDS ORDERED: ISOVUE-370 76% 100ML VIAL As Ordered ONE (00:01)
[2022-05-20] MEDS ORDERED: PANTOPRAZOLE 40MG VIAL IV ONE (01:25)
[2022-05-20] MEDS ORDERED: ESTRADIOL (14:28)
[2022-05-20] MEDS ORDERED: MIRA3350 PO (18:26)
[2022-05-20] MEDS ORDERED: SIME180C25 PO (18:26)
== END 2022-05-20 01:36 | disposition home or self-care (01) ==
LOC: M ED 21:29
DX: R10.9 Unspecified abdominal pain (principal); R51.9 Headache, unspecified; N80.9 Endometriosis, unspecified; Z87.442 Personal history of urinary calculi; Z88.0 Allergy status to penicillin; Z79.899 Other long term (current) drug therapy
CPT/HCPCS: 71045; 71275; 74177; 80048; 80076; 82803; 83605; 83690; 85025; 93041; 96374; 96375; 99284; C9113; J1200; J1885; J2765

== ENCOUNTER 2022-05-20 14:16 | Emergency (ER) | payer BC ==
[~2022-05-20] VITALS: Ht 165.1 cm; Wt 94.9 kg
[~2022-05-20 14:16] MED LIST changes: +ESTR1TAB PO; +MAGN200T PO
[2022-05-20] MEDS ORDERED: ESTRADIOL (14:28)
[2022-05-20 15:24] LABS: BASO # 0.1 10^3/uL (0.0-0.2); BASO % 0.7 % (0.0-1.0); EOS # 0.3 10^3/uL (0.0-0.5); EOS % 2.9 % (0.0-3.0); HEMATOCRIT 43.2 % (36.0-47.0); LYMPH # 2.1 10^3/uL (1.5-5.0); LYMPH % 19.3 % (24.0-44.0); MEAN CORPUSCULAR HEMOGLOBIN 29.5 pg (27.0-33.0); MEAN CORPUSCULAR HGB CONC 32.4 g/dl (32.0-36.5); MEAN CORPUSCULAR VOLUME 91.1 fl (80.0-96.0); MONO # 0.7 10^3/uL (0.0-0.8); MONO % 6.1 % (2.0-8.0); NEUTROPHILS # 7.7 10^3/uL (1.5-8.5); NEUTROPHILS % 70.5 % (36.0-66.0); PLATELET COUNT, AUTOMATED 291 10^3/uL (150-450); RED BLOOD COUNT 4.74 10^6/uL (4.00-5.40); WHITE BLOOD COUNT 10.9 10^3/uL (4.0-10.0)
[2022-05-20 15:45] LABS: ALBUMIN 3.6 G/DL (3.2-5.2); ALKALINE PHOSPHATASE 77 U/L (46-116); ALT/SGPT 48 U/L (7.0-40); AST/SGOT 50 U/L (<34); BILIRUBIN,DIRECT < 0.1 MG/DL (<0.4); BILIRUBIN,TOTAL 0.3 MG/DL (0.3-1.2); BLOOD UREA NITROGEN 14 MG/DL (9-23); CALCIUM LEVEL 9.3 MG/DL (8.5-10.1); CARBON DIOXIDE LEVEL 22 MMOL/L (20-31); CHLORIDE LEVEL 106 MMOL/L (98-107); CK-MB VALUE MASS < 1.0 NG/ML (<3.6); CPK CREATINE PHOSPHOKINASE 44 U/L (34-145); CREATININE FOR GFR 0.68 MG/DL (0.55-1.30); GLOMERULAR FILTRATION RATE > 60.0 (>58); GLUCOSE, FASTING 92 MG/DL (60-100); LIPASE 33 U/L (12-53); MB/CK RELATIVE INDEX 2.27 (< OR =4); POTASSIUM SERUM 4.7 MMOL/L (3.5-5.1); SODIUM LEVEL 138 MMOL/L (136-145); THYROID STIMULATING HORMONE 2.042 uIU/ML (0.55-4.78); TOTAL PROTEIN 6.2 G/DL (5.7-8.2)
[2022-05-20 16:42] LABS: CK-MB VALUE MASS < 1.0 NG/ML (<3.6)
[2022-05-20 16:47] LABS: CPK CREATINE PHOSPHOKINASE 30 U/L (34-145); MB/CK RELATIVE INDEX 3.33 (< OR =4)
[2022-05-20] MEDS ORDERED: GI COCKTAIL 50ML BTL(HYOSCYAMINE/MAALOX/LIDOCAINE VISCOUS)(1:3:1) PO ONE (17:00)
[2022-05-20 17:20] LABS: APPEARANCE, URINE CLEAR (CLEAR); BACTERIA, URINE AUTO NEGATIVE (NEGATIVE); BILIRUBIN, URINE AUTO NEGATIVE (NEGATIVE); BLOOD, URINE BLOOD NEGATIVE (NEGATIVE); COLOR, URINE YELLOW (YELLOW); GLUCOSE, URINE (UA) AUTO NEGATIVE (NEGATIVE); KETONE, URINE AUTO NEGATIVE (NEGATIVE); LEUKOCYTE ESTERASE, URINE AUTO NEGATIVE (NEGATIVE); NITRITE, URINE AUTO NEGATIVE (NEGATIVE); PROTEIN, URINE AUTO NEGATIVE (NEGATIVE); RBC, URINE AUTO 0 /HPF (0-3); SPECIFIC GRAVITY URINE AUTO 1.018 (1.002-1.035); SQUAMOUS EPITHELIAL CELL UR AU 1 /HPF (0-6); UROBILINOGEN, URINE AUTO 0.2 mg/dL (0.0-2.0); WBC, URINE AUTO 0 /HPF (0-3)
[2022-05-20] MEDS ORDERED: LORazepam 2 MG/ML 1ML VIAL IV STA (17:27)
[2022-05-20] MEDS ORDERED: LORazepam 1 MG TAB PO STA (17:39)
[2022-05-20] MEDS ORDERED: SIME180C25 PO (18:26)
[2022-05-20] MEDS ORDERED: MIRA3350 PO (18:26)
[2022-05-20 18:30] VITALS: BP 156/79
== END 2022-05-20 18:32 | disposition home or self-care (01) ==
LOC: M ED 14:16
DX: R07.9 Chest pain, unspecified (principal); R10.9 Unspecified abdominal pain; K44.9 Diaphragmatic hernia without obstruction or gangrene; Z87.442 Personal history of urinary calculi; Z88.0 Allergy status to penicillin; Z79.82 Long term (current) use of aspirin; Z79.899 Other long term (current) drug therapy

== ENCOUNTER → 2022-07-18 | Outpatient (CLI) | payer BC ==
[~2022-07-18] MED LIST changes: +ESTRADIOL; +MIRA3350 PO
[2022-07-18 20:38] LABS: ALBUMIN 3.6 G/DL (3.2-5.2); ALKALINE PHOSPHATASE 91 U/L (46-116); ALT/SGPT 60 U/L (7.0-40); AST/SGOT 33 U/L (<34); BILIRUBIN,DIRECT < 0.1 MG/DL (<0.4); BILIRUBIN,TOTAL 0.2 MG/DL (0.3-1.2); TOTAL IRON BINDING CAPACITY 359 UG/DL (250-425); TOTAL PROTEIN 6.5 G/DL (5.7-8.2)
[2022-07-18 20:39] LABS: FREE T4 1.06 NG/DL (0.89-1.76); THYROID STIMULATING HORMONE 1.927 uIU/ML (0.55-4.78)
[2022-07-18 20:51] LABS: HEPATITIS B SURFACE ANTIGEN NEGATIVE (NEGATIVE)
[2022-07-18 21:07] LABS: IRON (FE) 59 UG/DL (50-170); PERCENT SATURATION 16.4 % (13.2-45.0)
[2022-07-18 21:48] LABS: HEPATITIS B CORE ANTIBODY IGM NEGATIVE (NEGATIVE); IMMUNOGLOBULIN A 148.5 MG/DL (40-350)
== END ==
LOC: M WUC 15:00
PROVIDERS: ATTEND Internal Medicine Gastroenterology
DX: K58.1 Irritable bowel syndrome with constipation (principal); R74.8 Abnormal levels of other serum enzymes

== ENCOUNTER 2022-08-26 11:40 | Day surgery (SDC) | payer BC ==
[~2022-08-26] VITALS: Ht 165.1 cm; Wt 93.0 kg
[~2022-08-26 11:40] MED LIST changes: +ESOM40CA35 PO; +FAMO20TA5 PO; +LIDOCAINE 2% 100MG/5ML SDV (FOR ANES.) As Ordered ONE; +NS 1,000 ML IV ONE; +TUDCA PO; +propofoL 200 MG/20 ML VIAL As Ordered ONE
[2022-08-26] MEDS ORDERED: propofoL 200 MG/20 ML VIAL As Ordered ONE (12:06)
[2022-08-26] MEDS ORDERED: fentaNYL 100 MCG/2 ML INJECTION As Ordered ONE (13:08)
[2022-08-26 14:57] VITALS: BP 141/96; O2SAT 98
== END 2022-08-26 14:59 | disposition home or self-care (01) ==
LOC: M OPP 11:40
PROVIDERS: ATTEND Internal Medicine Gastroenterology
DX: K63.5 Polyp of colon (principal); K64.8 Other hemorrhoids; K59.00 Constipation, unspecified; K21.00 Gastro-esophageal reflux disease with esophagitis, without bleeding; K31.89 Other diseases of stomach and duodenum; K22.70 Barrett's esophagus without dysplasia; K29.70 Gastritis, unspecified, without bleeding; Z87.891 Personal history of nicotine dependence; Z79.899 Other long term (current) drug therapy; Z88.0 Allergy status to penicillin
CPT/HCPCS: 43239; 45385; 88305; J3010

== ENCOUNTER → 2023-01-16 | Outpatient (CLI) | payer BC ==
[~2023-01-16] MED LIST changes: +DICY-61 PO; -DICY10CA13 PO; -LIDOCAINE 2% 100MG/5ML SDV (FOR ANES.) As Ordered ONE; -NS 1,000 ML IV ONE; -propofoL 200 MG/20 ML VIAL As Ordered ONE
== END ==
LOC: M PLAIMG 11:16
PROVIDERS: ATTEND Physician Assistant
DX: Z87.442 Personal history of urinary calculi (principal); K56.41 Fecal impaction

== ENCOUNTER 2023-03-07 07:29 | Emergency (ER) | payer BC ==
[~2023-03-07] VITALS: Ht 165.1 cm; Wt 87.2 kg
[2023-03-07 07:31] VITALS: BP 157/98; TEMP 98.4; O2SAT 97
[2023-03-07] MEDS ORDERED: VITAD400CA FT (07:48)
[2023-03-07] MEDS ORDERED: GNP250TA9 PO (07:48)
[2023-03-07] MEDS ORDERED: [UNRECOGNIZED DRUG - CODE] PO (07:49)
== END 2023-03-07 09:52 | disposition left against medical advice (07) ==
LOC: M ED 07:29
DX: Z53.21 Procedure and treatment not carried out due to patient leaving prior to being seen by health care provider (principal)

== ENCOUNTER 2023-04-23 13:20 | Emergency (ER) | payer BC ==
[~2023-04-23] VITALS: Ht 165.1 cm; Wt 82.9 kg
[~2023-04-23 13:20] MED LIST changes: +GNP250TA9 PO; +VITAD400CA FT; +[UNRECOGNIZED DRUG - CODE] PO
[2023-04-23] MEDS ORDERED: HYDR-3363 (13:28)
[2023-04-23] MEDS ORDERED: SLIPPERY ELM (13:28)
[2023-04-23] MEDS ORDERED: FAMO1TAB11 (13:28)
[2023-04-23] MEDS: METOCLOPRAMIDE INJ 10MG/2ML VIAL IV ONE (16:48)
[2023-04-23] MEDS: NS 1,000 ML IV ONE (16:48)
[2023-04-23] MEDS: KETOROLAC 30 MG/ML 1ML VIAL IV ONE (16:52)
[2023-04-23] MEDS: diphenhydrAMINE 50MG/ML VIAL IV ONE (16:53)
[2023-04-23 17:23] LABS: BASO # 0.1 10^3/uL (0.0-0.2); BASO % 0.7 % (0.0-1.0); EOS # 0.1 10^3/uL (0.0-0.5); EOS % 1.3 % (0.0-3.0); HEMATOCRIT 47.1 % (36.0-47.0); HEMOGLOBIN 15.6 g/dl (12.0-15.5); LYMPH # 2.5 10^3/uL (1.5-5.0); LYMPH % 28.2 % (24.0-44.0); MEAN CORPUSCULAR HEMOGLOBIN 29.5 pg (27.0-33.0); MEAN CORPUSCULAR HGB CONC 33.1 g/dl (32.0-36.5); MONO # 0.5 10^3/uL (0.0-0.8); MONO % 5.4 % (2.0-8.0); NEUTROPHILS # 5.6 10^3/uL (1.5-8.5); NEUTROPHILS % 64.2 % (36.0-66.0); PLATELET COUNT, AUTOMATED 316 10^3/uL (150-450); RED BLOOD COUNT 5.29 10^6/uL (4.00-5.40); WHITE BLOOD COUNT 8.8 10^3/uL (4.0-10.0)
[2023-04-23 17:32] LABS: C REACTIVE PROTEIN QUANTITATIV < 0.40 MG/DL (<1.0)
[2023-04-23 17:34] LABS: BLOOD UREA NITROGEN 9 MG/DL (9-23); CALCIUM LEVEL 9.4 MG/DL (8.5-10.1); CARBON DIOXIDE LEVEL 27 MMOL/L (20-31); CHLORIDE LEVEL 108 MMOL/L (98-107); CREATININE FOR GFR 0.72 MG/DL (0.55-1.30); ERYTHROCYTE SEDIMENTATION RATE 15 mm/hr (0-20); GLOMERULAR FILTRATION RATE > 60.0 (>58); GLUCOSE, FASTING 92 MG/DL (60-100); MAGNESIUM LEVEL 2.4 MG/DL (1.8-2.4); POTASSIUM SERUM 4.4 MMOL/L (3.5-5.1); SODIUM LEVEL 140 MMOL/L (136-145)
[2023-04-23 17:36] LABS: THYROID STIMULATING HORMONE 1.161 uIU/ML (0.55-4.78)
[2023-04-23 17:47] VITALS: BP 126/71; TEMP 98.1; O2SAT 100
[2023-04-23 17:47] LABS: RSV AMPLIFICATION NEGATIVE (NEGATIVE)
== END 2023-04-23 18:20 | disposition home or self-care (01) ==
LOC: M ED 13:20
DX: G43.909 Migraine, unspecified, not intractable, without status migrainosus (principal); K21.9 Gastro-esophageal reflux disease without esophagitis; J44.9 Chronic obstructive pulmonary disease, unspecified; Z87.442 Personal history of urinary calculi; Z79.899 Other long term (current) drug therapy; Z88.0 Allergy status to penicillin; Z88.6 Allergy status to analgesic agent
CPT/HCPCS: 70450; 80048; 83735; 84439; 84443; 84702; 85025; 85652; 86140; 87631; 96361; 96374; 96375; 99284; J1200; J1885; J2765

== ENCOUNTER 2023-05-17 16:47 | Emergency (ER) | payer BC ==
[~2023-05-17] VITALS: Ht 165.1 cm; Wt 76.8 kg
[~2023-05-17 16:47] MED LIST changes: +FAMO1TAB11; +HYDR-3363; +SLIPPERY ELM; -VITAD400CA FT; +VITAD400CA PO
[2023-05-17] MEDS ORDERED: IBUP200C90 PO (16:57)
[2023-05-17 17:47] LABS: BASO # 0.1 10^3/uL (0.0-0.2); BASO % 0.6 % (0.0-1.0); EOS # 0.2 10^3/uL (0.0-0.5); EOS % 1.9 % (0.0-3.0); HEMATOCRIT 50.4 % (36.0-47.0); HEMOGLOBIN 16.3 g/dl (12.0-15.5); LYMPH # 2.6 10^3/uL (1.5-5.0); LYMPH % 27.4 % (24.0-44.0); MEAN CORPUSCULAR HEMOGLOBIN 29.3 pg (27.0-33.0); MEAN CORPUSCULAR HGB CONC 32.3 g/dl (32.0-36.5); MEAN CORPUSCULAR VOLUME 90.5 fl (80.0-96.0); MONO # 0.7 10^3/uL (0.0-0.8); MONO % 6.9 % (2.0-8.0); NEUTROPHILS # 5.9 10^3/uL (1.5-8.5); PLATELET COUNT, AUTOMATED 368 10^3/uL (150-450); RED BLOOD COUNT 5.57 10^6/uL (4.00-5.40); WHITE BLOOD COUNT 9.4 10^3/uL (4.0-10.0)
[2023-05-17 18:03] LABS: LIPASE 41 U/L (12-53)
[2023-05-17 18:05] LABS: ALBUMIN 4.3 G/DL (3.2-5.2); ALKALINE PHOSPHATASE 100 U/L (46-116); ALT/SGPT 61 U/L (7.0-40); AST/SGOT 16 U/L (<34); BILIRUBIN,DIRECT 0.2 MG/DL (<0.4); BILIRUBIN,TOTAL 0.7 MG/DL (0.3-1.2); BLOOD UREA NITROGEN 8 MG/DL (9-23); CALCIUM LEVEL 9.6 MG/DL (8.5-10.1); CARBON DIOXIDE LEVEL 26 MMOL/L (20-31); CHLORIDE LEVEL 106 MMOL/L (98-107); CREATININE FOR GFR 0.82 MG/DL (0.55-1.30); GLOMERULAR FILTRATION RATE > 60.0 (>58); GLUCOSE, FASTING 97 MG/DL (60-100); POTASSIUM SERUM 4.1 MMOL/L (3.5-5.1); SODIUM LEVEL 137 MMOL/L (136-145); TOTAL PROTEIN 7.3 G/DL (5.7-8.2)
[2023-05-17 18:51] VITALS: TEMP 98
[2023-05-17 19:43] LABS: CK-MB VALUE MASS < 1.0 NG/ML (<3.6)
[2023-05-17 19:44] LABS: CPK CREATINE PHOSPHOKINASE 22 U/L (34-145); MB/CK RELATIVE INDEX 4.54 (< OR =4)
[2023-05-17] MEDS ORDERED: ISOVUE-370 76% 100ML VIAL As Ordered ONE (19:58)
[2023-05-17 20:06] LABS: CK-MB VALUE MASS < 1.0 NG/ML (<3.6)
[2023-05-17 20:07] LABS: CPK CREATINE PHOSPHOKINASE 19 U/L (34-145); MB/CK RELATIVE INDEX 5.26 (< OR =4)
[2023-05-17] MEDS ORDERED: REGL10TA6 PO (21:26)
[2023-05-17 21:45] VITALS: BP 128/74; O2SAT 99
== END 2023-05-17 21:46 | disposition home or self-care (01) ==
LOC: M ED 16:47
DX: R10.9 Unspecified abdominal pain (principal); K21.9 Gastro-esophageal reflux disease without esophagitis; K44.9 Diaphragmatic hernia without obstruction or gangrene; N80.9 Endometriosis, unspecified; F17.200 Nicotine dependence, unspecified, uncomplicated; Z87.442 Personal history of urinary calculi; Z88.0 Allergy status to penicillin; Z88.6 Allergy status to analgesic agent; Z79.82 Long term (current) use of aspirin; Z79.899 Other long term (current) drug therapy; Z79.811 Long term (current) use of aromatase inhibitors
CPT/HCPCS: 36415; 74177; 80048; 80076; 81001; 82550; 82553; 83690; 84484; 85025; 87486; 87581; 87633; 87798; 93005; 99284; Q9967

== ENCOUNTER → 2023-08-19 | Outpatient (CLI) | payer BC ==
[~2023-08-19] MED LIST changes: +IBUP200C90 PO; +REGL10TA6 PO
[2023-08-19 13:08] LABS: APPEARANCE, URINE HAZY (CLEAR); BACTERIA, URINE AUTO NEGATIVE (NEGATIVE); BILIRUBIN, URINE AUTO NEGATIVE (NEGATIVE); BLOOD, URINE BLOOD NEGATIVE (NEGATIVE); CALCIUM OXALATE CRYSTALS LARGE; COLOR, URINE YELLOW (YELLOW); GLUCOSE, URINE (UA) AUTO NEGATIVE (NEGATIVE); KETONE, URINE AUTO NEGATIVE (NEGATIVE); LEUKOCYTE ESTERASE, URINE AUTO NEGATIVE (NEGATIVE); MUCUS, URINE SMALL (NEGATIVE); NITRITE, URINE AUTO NEGATIVE (NEGATIVE); PROTEIN, URINE AUTO NEGATIVE (NEGATIVE); RBC, URINE AUTO 1 /HPF (0-3); SPECIFIC GRAVITY URINE AUTO 1.016 (1.002-1.035); SQUAMOUS EPITHELIAL CELL UR AU 1 /HPF (0-6); UROBILINOGEN, URINE AUTO 0.2 mg/dL (0.0-2.0); WBC, URINE AUTO 0 /HPF (0-3)
[2023-08-19 13:19] LABS: BASO # 0.1 10^3/uL (0.0-0.2); BASO % 0.9 % (0.0-1.0); EOS # 0.3 10^3/uL (0.0-0.5); EOS % 3.5 % (0.0-3.0); HEMATOCRIT 49.1 % (36.0-47.0); HEMOGLOBIN 16.2 g/dl (12.0-15.5); LYMPH # 3.2 10^3/uL (1.5-5.0); LYMPH % 36.1 % (24.0-44.0); MEAN CORPUSCULAR HEMOGLOBIN 30.6 pg (27.0-33.0); MEAN CORPUSCULAR VOLUME 92.8 fl (80.0-96.0); MONO # 0.6 10^3/uL (0.0-0.8); MONO % 6.5 % (2.0-8.0); NEUTROPHILS # 4.7 10^3/uL (1.5-8.5); NEUTROPHILS % 52.7 % (36.0-66.0); RED BLOOD COUNT 5.29 10^6/uL (4.00-5.40); WHITE BLOOD COUNT 8.9 10^3/uL (4.0-10.0)
[2023-08-19 13:36] LABS: HEMOGLOBIN A1c 5.1 % (4.0-6.0)
[2023-08-19 13:37] LABS: IRON (FE) 98 UG/DL (50-170)
[2023-08-19 13:43] LABS: ALBUMIN 3.8 G/DL (3.2-5.2); ALKALINE PHOSPHATASE 111 U/L (46-116); ALT/SGPT 43 U/L (7.0-40); AST/SGOT 16 U/L (<34); BILIRUBIN,TOTAL 0.5 MG/DL (0.3-1.2); BLOOD UREA NITROGEN 13 MG/DL (9-23); CALCIUM LEVEL 9.7 MG/DL (8.5-10.1); CARBON DIOXIDE LEVEL 28 MMOL/L (20-31); CHLORIDE LEVEL 106 MMOL/L (98-107); CHOLESTEROL LEVEL 220 MG/DL (<200); CHOLESTEROL RISK RATIO 5.62 (<5); CREATININE FOR GFR 0.82 MG/DL (0.55-1.30); GLOMERULAR FILTRATION RATE > 60.0 (>58); GLUCOSE, FASTING 72 MG/DL (60-100); HDL CHOLESTEROL 39.1 MG/DL (>40); LDL CHOLESTEROL 145.9 MG/DL (<100); NON-HDL-C 180.9 MG/DL; POTASSIUM SERUM 3.7 MMOL/L (3.5-5.1); SODIUM LEVEL 141 MMOL/L (136-145); TOTAL PROTEIN 6.4 G/DL (5.7-8.2); TRIGLYCERIDES LEVEL 175 MG/DL (<150)
[2023-08-19 13:45] LABS: LUTEINIZING HORMONE 23.4 mIU/ML; VITAMIN B12 LEVEL 428 PG/ML (211-911)
[2023-08-19 13:46] LABS: FOLLICLE STIMULATING HORMONE 10.3 mIU/ML; FREE T4 1.33 NG/DL (0.89-1.76); THYROID STIMULATING HORMONE 2.791 uIU/ML (0.55-4.78)
[2023-08-19 13:47] LABS: TOTAL 25(OH) VITAMIN D 55.5 NG/ML (20.0-100.0)
[2023-08-19 14:19] LABS: RHEUMATOID FACTOR QUANT 4.5 IU/ML (<14)
[2023-08-19 14:21] LABS: FREE T3 3.4 PG/ML (2.3-4.2); THYROID PEROXIDASE ANTIBODY 36 U/ML (<60.0)
[2023-08-20 08:27] LABS: INSULIN LEVEL 7.6 uIU/mL (<=18.4)
[2023-08-20 15:28] LABS: ANA SCREEN, IFA NEGATIVE (NEGATIVE)
[2023-08-20 15:31] LABS: THRYOGLOBULIN ANTIBODIES (ATA) < 1 IU/mL (< or = 1); THYROGLOBULIN QUANTITATIVE 12.8 ng/mL (2.8-40.9)
[2023-08-22 04:12] LABS: ESTRIOL SERUM <0.1 ng/mL (.)
== END ==
LOC: M WUC 08:11
PROVIDERS: ATTEND Internal Medicine
DX: R53.81 Other malaise (principal); Z86.16 Personal history of COVID-19; R51.9 Headache, unspecified; K30 Functional dyspepsia; M62.838 Other muscle spasm

== ENCOUNTER → 2023-11-27 | Outpatient (CLI) | payer BC ==
[2023-11-27 11:26] LABS: APPEARANCE, URINE CLEAR (CLEAR); BACTERIA, URINE AUTO NEGATIVE (NEGATIVE); BILIRUBIN, URINE AUTO NEGATIVE (NEGATIVE); BLOOD, URINE BLOOD NEGATIVE (NEGATIVE); COLOR, URINE STRAW (YELLOW); GLUCOSE, URINE (UA) AUTO NEGATIVE (NEGATIVE); KETONE, URINE AUTO NEGATIVE (NEGATIVE); LEUKOCYTE ESTERASE, URINE AUTO NEGATIVE (NEGATIVE); NITRITE, URINE AUTO NEGATIVE (NEGATIVE); PROTEIN, URINE AUTO NEGATIVE (NEGATIVE); RBC, URINE AUTO 0 /HPF (0-3); SPECIFIC GRAVITY URINE AUTO 1.005 (1.002-1.035); SQUAMOUS EPITHELIAL CELL UR AU 0 /HPF (0-6); UROBILINOGEN, URINE AUTO 0.2 mg/dL (0.0-2.0); WBC, URINE AUTO 0 /HPF (0-3)
[2023-11-27 11:26] LABS: BASO # 0.1 10^3/uL (0.0-0.2); BASO % 0.9 % (0.0-1.0); EOS # 0.2 10^3/uL (0.0-0.5); HEMATOCRIT 47.7 % (36.0-47.0); HEMOGLOBIN 15.4 g/dl (12.0-15.5); LYMPH # 2.5 10^3/uL (1.5-5.0); LYMPH % 32.1 % (24.0-44.0); MEAN CORPUSCULAR HEMOGLOBIN 29.6 pg (27.0-33.0); MEAN CORPUSCULAR HGB CONC 32.3 g/dl (32.0-36.5); MEAN CORPUSCULAR VOLUME 91.7 fl (80.0-96.0); MONO # 0.6 10^3/uL (0.0-0.8); MONO % 7.3 % (2.0-8.0); NEUTROPHILS # 4.4 10^3/uL (1.5-8.5); NEUTROPHILS % 56.3 % (36.0-66.0); PLATELET COUNT, AUTOMATED 253 10^3/uL (150-450); WHITE BLOOD COUNT 7.8 10^3/uL (4.0-10.0)
[2023-11-27 11:52] LABS: IRON (FE) 65 UG/DL (50-170)
[2023-11-27 11:53] LABS: ALBUMIN 3.8 G/DL (3.2-5.2); ALKALINE PHOSPHATASE 88 U/L (46-116); ALT/SGPT 28 U/L (7.0-40); AST/SGOT 10 U/L (<34); BILIRUBIN,TOTAL 0.4 MG/DL (0.3-1.2); BLOOD UREA NITROGEN 12 MG/DL (9-23); CALCIUM LEVEL 10.1 MG/DL (8.5-10.1); CARBON DIOXIDE LEVEL 29 MMOL/L (20-31); CHLORIDE LEVEL 110 MMOL/L (98-107); CHOLESTEROL LEVEL 243 MG/DL (<200); CHOLESTEROL RISK RATIO 5.75 (<5); CREATININE FOR GFR 0.75 MG/DL (0.55-1.30); FREE T4 1.36 NG/DL (0.89-1.76); GLOMERULAR FILTRATION RATE > 60.0 (>58); GLUCOSE, FASTING 88 MG/DL (60-100); HDL CHOLESTEROL 42.2 MG/DL (>40); NON-HDL-C 200.8 MG/DL; POTASSIUM SERUM 4.7 MMOL/L (3.5-5.1); SODIUM LEVEL 139 MMOL/L (136-145); TOTAL PROTEIN 6.4 G/DL (5.7-8.2); TRIGLYCERIDES LEVEL 94 MG/DL (<150)
[2023-11-27 11:54] LABS: THYROID STIMULATING HORMONE 1.339 uIU/ML (0.55-4.78)
[2023-11-27 11:56] LABS: FREE T3 3.2 PG/ML (2.3-4.2)
== END ==
LOC: M LAB 09:58
PROVIDERS: ATTEND Internal Medicine
DX: K21.9 Gastro-esophageal reflux disease without esophagitis (principal); F41.9 Anxiety disorder, unspecified; R53.83 Other fatigue; F32.A Depression, unspecified

== ENCOUNTER 2023-12-16 02:59 | Emergency (ER) | payer BC ==
[~2023-12-16] VITALS: Ht 165.1 cm; Wt 68.2 kg
[~2023-12-16 02:59] MED LIST changes: -SIME180C25 PO; +SIME1CAP4 PO
[2023-12-16] MEDS ORDERED: KETOROLAC 30 MG/ML 1ML VIAL IM ONE (07:25)
[2023-12-16] MEDS: ONDANSETRON 4MG 2ML VIAL IV ONE (07:36)
[2023-12-16 07:45] LABS: BASO # 0.1 10^3/uL (0.0-0.2); BASO % 0.6 % (0.0-1.0); EOS # 0.1 10^3/uL (0.0-0.5); EOS % 0.4 % (0.0-3.0); HEMATOCRIT 45.6 % (36.0-47.0); HEMOGLOBIN 15.3 g/dl (12.0-15.5); LYMPH # 2.3 10^3/uL (1.5-5.0); LYMPH % 16.8 % (24.0-44.0); MEAN CORPUSCULAR HEMOGLOBIN 30.3 pg (27.0-33.0); MEAN CORPUSCULAR HGB CONC 33.6 g/dl (32.0-36.5); MEAN CORPUSCULAR VOLUME 90.3 fl (80.0-96.0); MONO # 1.1 10^3/uL (0.0-0.8); MONO % 8.3 % (2.0-8.0); NEUTROPHILS # 10.1 10^3/uL (1.5-8.5); NEUTROPHILS % 73.4 % (36.0-66.0); PLATELET COUNT, AUTOMATED 290 10^3/uL (150-450); RED BLOOD COUNT 5.05 10^6/uL (4.00-5.40); WHITE BLOOD COUNT 13.7 10^3/uL (4.0-10.0)
[2023-12-16] MEDS: KETOROLAC 30 MG/ML 1ML VIAL IV ONE (07:45)
[2023-12-16 08:09] LABS: ALBUMIN 3.6 G/DL (3.2-5.2); ALKALINE PHOSPHATASE 78 U/L (46-116); ALT/SGPT 17 U/L (7.0-40); AST/SGOT < 8 U/L (<34); BILIRUBIN,DIRECT 0.2 MG/DL (<0.4); BILIRUBIN,TOTAL 0.7 MG/DL (0.3-1.2); BLOOD UREA NITROGEN 15 MG/DL (9-23); CALCIUM LEVEL 9.1 MG/DL (8.5-10.1); CARBON DIOXIDE LEVEL 24 MMOL/L (20-31); CHLORIDE LEVEL 106 MMOL/L (98-107); CREATININE FOR GFR 0.79 MG/DL (0.55-1.30); GLOMERULAR FILTRATION RATE > 60.0 (>58); GLUCOSE, FASTING 92 MG/DL (60-100); POTASSIUM SERUM 4.2 MMOL/L (3.5-5.1); SODIUM LEVEL 136 MMOL/L (136-145); TOTAL PROTEIN 6.1 G/DL (5.7-8.2)
[2023-12-16 10:28] LABS: ERYTHROCYTE SEDIMENTATION RATE 12 mm/hr (0-20)
[2023-12-16] MEDS ORDERED: ONDA-282 PO (11:24)
[2023-12-16 12:09] VITALS: BP 102/56; TEMP 98.6; O2SAT 97
[2023-12-19 18:57] LABS: LYME TOTAL ANTIBODY CIA <= 0.90 Index (<=0.90)
== END 2023-12-16 12:14 | disposition home or self-care (01) ==
LOC: M ED 02:59
DX: G43.909 Migraine, unspecified, not intractable, without status migrainosus (principal); Z88.0 Allergy status to penicillin; Z88.6 Allergy status to analgesic agent; Z87.442 Personal history of urinary calculi; Z90.49 Acquired absence of other specified parts of digestive tract
CPT/HCPCS: 70450; 71045; 80048; 80076; 85025; 85652; 86618; 87486; 87581; 87633; 87798; 96374; 96375; 99284; J1885; J2405

== ENCOUNTER 2023-12-18 08:56 | Emergency (ER) | payer BC ==
[~2023-12-18] VITALS: Ht 165.1 cm; Wt 66.9 kg
[~2023-12-18 08:56] MED LIST changes: +ONDA-282 PO
[2023-12-18 09:00] VITALS: BP 123/60; TEMP 97; O2SAT 96
== END 2023-12-18 10:03 | disposition left against medical advice (07) ==
LOC: M ED 08:56
DX: Z53.21 Procedure and treatment not carried out due to patient leaving prior to being seen by health care provider (principal)

== ENCOUNTER → 2025-01-07 | Outpatient (CLI) | payer BC ==
[~2025-01-07] MED LIST changes: -FLOM0.4C39 PO; +TAMS-18 PO
== END ==
LOC: M EKG 09:55
DX: R00.2 Palpitations (principal); R94.31 Abnormal electrocardiogram [ECG] [EKG]

== ENCOUNTER → 2025-01-11 | Outpatient (CLI) | payer BC ==
[2025-01-11 13:42] LABS: ALT/SGPT 25 U/L (7.0-40); AST/SGOT 15 U/L (<34); CALCIUM LEVEL 9.2 MG/DL (8.5-10.1); CARBON DIOXIDE LEVEL 27 MMOL/L (20-31); CHLORIDE LEVEL 104 MMOL/L (98-107); CREATININE FOR GFR 0.78 MG/DL (0.55-1.30); FREE T4 1.37 NG/DL (0.89-1.76); GLOMERULAR FILTRATION RATE > 90.0 (>58); POTASSIUM SERUM 4.0 MMOL/L (3.5-5.1); SODIUM LEVEL 140 MMOL/L (136-145)
== END ==
LOC: M LAB 12:45
DX: R00.2 Palpitations (principal); N95.1 Menopausal and female climacteric states; E78.5 Hyperlipidemia, unspecified